=== PATIENT | female | born 1980 | race Caucasian/White ===

== ENCOUNTER → 2017-01-26 | Outpatient (CLI) | payer BC ==
[~2017-01-26] MED LIST: ASPI81TA28 PO; IBUP-1050 PO; RBTUDL10 PO; levaquin PO
--- NOTE | 2017-01-26 09:01 | DIAGNOSTIC IMAGING REPORT ---
L-SPINE MIN 4 VIEWS ROUTINE CLINICAL HISTORY: LOWER BACK PAIN COMPARISON STUDY: 02/14/2014 FINDINGS: There are surgical clips within the right upper quadrant consistent with a prior cholecystectomy. There are surgical clips present within the right hemipelvis. There are 5 lumbar type vertebral bodies. No fractures or subluxations are visualized. The disc space heights appear well-preserved for age. No destructive lesions are evident. IMPRESSION: Unremarkable conventional radiographic evaluation of the lumbar spine Electronically signed by: Lizandro Jose M.D. 01/26/2017 9:00 AM Dictated Date/Time: 01/26/2017 8:59 AM
--- NOTE | 2017-01-26 09:52 | DIAGNOSTIC IMAGING REPORT ---
PELVIC ULTRASOUND CLINICAL HISTORY: Irregular bleeding. COMPARISON STUDY: Pelvic ultrasound February 01, 2012. TECHNIQUE: Transabdominal and transvaginal sonography of the pelvis was performed. FINDINGS: The uterus measures 8 x 6.5 x 5.1 cm. Fluid is shown within the uterine cavity. There is slight irregularity of the endometrium. Endometrial thickness is normal, measuring 5 mm. The ovaries are sonographically normal. The right measures 3.5 x 2.1 x 1.5 cm and the left measures 3.1 x 2 x 1.9 cm. There is no free fluid within the pelvis. IMPRESSION: 1. Normal endometrial thickness of 5 mm. Fluid within the uterine cavity. 2. Normal sonographic appearance of the ovaries. Electronically signed by: Dennis Yoder M.D. 01/26/2017 9:50 AM Dictated Date/Time: 01/26/2017 9:14 AM
== END | disposition home or self-care (01) ==
LOC: C.ULTRBC 07:44
PROVIDERS: ATTEND Family Medicine
DX: M54.5 Low back pain (principal)

== ENCOUNTER → 2017-01-31 | Outpatient (CLI) | payer BC ==
[2017-02-02 13:55] LABS: CHLAMYDIA TRACH RNA*** NOT DETECTED (NOT DETECTED); GC (NEIS GONORRHOEAE)RNA** NOT DETECTED (NOT DETECTED)
== END | disposition home or self-care (01) ==
LOC: C.LABSPEC 11:10
PROVIDERS: ATTEND Family Medicine
DX: N89.8 Other specified noninflammatory disorders of vagina (principal); R30.0 Dysuria

== ENCOUNTER → 2017-01-31 | Outpatient (CLI) | payer BC | END | disposition home or self-care (01) | LOC: C.PAPS 11:37 | PROVIDERS: ATTEND Family Medicine | DX: Z12.72 Encounter for screening for malignant neoplasm of vagina (principal) ==